=== PATIENT | male | born 1960 | race American Indian/Alaskan Native ===

== ENCOUNTER 2019-03-09 17:42 | Emergency (ER) | payer SELFPAY ==
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
--- NOTE | 2019-03-09 19:54 | Cat Scan Report ---
CT head/brain wo con INDICATION / CLINICAL INFORMATION: headache/neck pain. TECHNIQUE: Axial CT imaging of abdomen and pelvis was obtained without contrast. Coronal and sagittal reformatte d imaging obtained and reviewed. All CT scans at this location are performed using CT dose reduction for ALARA by means of automated exposure control. COMPARISON: None available. FINDINGS: No intracranial hemorrhage, mass, or midline shift is identified. No extra-axial fluid collection or suggestion of acute territorial infarct. Ventricular system and basilar cisterns are grossly unremark able. There is mild to moderate cerebral and cerebellar atrophy. Mild microvascular angiopathic neely es are noted. The visualized paranasal sinuses are well aerated and clear. Mastoid air cells are clear. I do not se e any evidence for calvarial fracture or significant soft tissue abnormality. IMPRESSION: 1. No acute intracranial abnormality. Signer Name: Ana Laura Haywood MD Signed: 03/09/2019 7:50 PM Workstation Name: [id number]
--- NOTE | 2019-03-09 20:04 | Cat Scan Report ---
CT CERVICAL SPINE WITHOUT CONTRAST INDICATION: headache/neck pain. TECHNIQUE: All CT scans at this location are performed using CT dose reduction for ALARA by means of automated e xposure control. Axial CT images were obtained through the cervical spine. Sagittal and coronal reformatted images we re produced. COMPARISON: None available. FINDINGS: Fracture: None. Subluxation: None. Spinal canal: No significant compromise. Disc spaces: Mild discogenic degenerative disease C4-6. Facet joints: Normal. Paraspinal soft tissues: No soft tissue swelling. Normal. Additional findings: None. Lung apices: Normal. IMPRESSION: 1. No acute findings. Signer Name: Kevin Rose MD Signed: 03/09/2019 8:00 PM Workstation Name: [id number]
--- NOTE | 2019-03-09 20:06 | XRay Report ---
. LEFT HAND 2 VIEWS INDICATION / CLINICAL INFORMATION: pain lt hand. COMPARISON: None available. FINDINGS: No fracture, dislocation or soft tissue swelling is seen within the left hand. Mild degenerative oste oarthrosis is seen within the PIP and DIP joints. Signer Name: Kevin Rose MD Signed: 03/09/2019 8:02 PM Workstation Name: [id number]
--- NOTE | 2019-03-09 20:06 | XRay Report ---
. LUMBAR SPINE 3 VIEWS INDICATION / CLINICAL INFORMATION: pain lumbar. COMPARISON: None available. FINDINGS: VERTEBRAE: No fracture. No significant malalignment. DISC SPACES:Moderately advanced discogenic degenerative disease L3-4 and L5-S1. Moderate discogenic d egenerative disease L4-5. FACET JOINTS:Moderate facet degenerative disease L4-S1 ADDITIONAL FINDINGS: Moderate degenerative arthrosis of both hips IMPRESSION: 1. Moderately advanced discogenic and facet degenerative disease lumbar spine Signer Name: Kevin Rose MD Signed: 03/09/2019 8:01 PM Workstation Name: [id number]
[2019-03-09] MEDS ORDERED: ACETAMINOPHEN 500 MG TAB PO ONE (22:28)
[2019-03-09] MEDS ORDERED: CYCLOBENZAPRINE 10 MG TAB PO ONE (22:28)
[2019-03-09] MEDS ORDERED: FUROSEMIDE 20 MG TAB PO ONE (22:29)
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
[2019-03-10 08:47] VITALS: BP 146/109
[2019-03-10] MEDS ORDERED: INSULIN REGULAR, HUMAN 100 UNITS/1 ML ONE (11:40)
[2019-03-10] MEDS ORDERED: INSULIN REGULAR, HUMAN 100 UNITS/1 ML SUB-Q ONE (11:53)
[2019-03-10] MEDS ORDERED: INSULIN NPH/REGULAR 70/30 INJ SUB-Q ONE (12:00)
== END 2019-03-10 12:07 | disposition home or self-care (01) ==
LOC: ED 17:42
DX: S66.919A Strain of unspecified muscle, fascia and tendon at wrist and hand level, unspecified hand, initial encounter (principal); M25.511 Pain in right shoulder; M25.512 Pain in left shoulder; I11.0 Hypertensive heart disease with heart failure; I50.9 Heart failure, unspecified; E11.9 Type 2 diabetes mellitus without complications; F17.200 Nicotine dependence, unspecified, uncomplicated; X58.XXXA Exposure to other specified factors, initial encounter; Y93.89 Activity, other specified; Y92.89 Other specified places as the place of occurrence of the external cause; Y99.8 Other external cause status
CPT/HCPCS: 70450; 72100; 72125; 82962; 96372; 99284; J1815

== ENCOUNTER 2019-03-11 22:14 | Emergency (ER) | payer SELFPAY ==
[2019-03-12 02:59] LABS: Basophils # (Auto) 0.1 K/mm3 (0.0-0.1); Basophils % (Auto) 1.1 % (0.0-1.8); Eosinophils # (Auto) 0.1 K/mm3 (0.0-0.4); Eosinophils % (Auto) 1.6 % (0.0-4.3); Hematocrit 36.4 % (35.5-45.6); Lymphocytes # (Auto) 0.9 K/mm3 (1.2-5.4); Lymphocytes % (Auto) 13.8 % (13.4-35.0); Mean Corpuscular HGB Conc 33 % (32-34); Mean Corpuscular Volume 77 fl (84-94); Monocytes # (Auto) 0.5 K/mm3 (0.0-0.8); Monocytes % (Auto) 7.7 % (0.0-7.3); Platelet Count 210 K/mm3 (140-440); Red Blood Count 4.76 M/mm3 (3.65-5.03)
[2019-03-12 03:02] LABS: Red Cell Distribution Width 20.2 % (13.2-15.2)
[2019-03-12 03:09] LABS: BUN/Creatinine Ratio 11; Blood Urea Nitrogen 14 mg/dL (9-20); Calcium 8.5 mg/dL (8.4-10.2); Hemolysis Index 5
[2019-03-12] MEDS ORDERED: SODIUM CHLORIDE 0.9% 1000 ML 1,000 ML IV ONE ×2 (03:10→03:11)
[2019-03-12] MEDS ORDERED: INSULIN REGULAR, HUMAN 100 UNITS/1 ML IV ONE (03:11)
[2019-03-12] MEDS ORDERED: FUROSEMIDE 40 MG/4 ML INJ IV ONE (05:19)
[2019-03-12] MEDS ORDERED: ACETAMINOPHEN 500 MG TAB PO ONE (05:49)
[2019-03-12] MEDS ORDERED: CYCLOBENZAPRINE 10 MG TAB PO ONE (06:19)
[2019-03-12 06:20] VITALS: BP 139/87
--- NOTE | 2019-03-12 06:42 | Emergency Department Report ---
ED General Adult HPI - General Chief complaint: Hyperglycemia Stated complaint: ELEVATED BGL Source: patient, EMS Mode of arrival: Ambulatory Limitations: No Limitations - History of Present Illness Initial comments: Patient is a 59-year-old -[place]er male with a history of hypertension, ozt-fmlsuwb-myaqdgdxa diabetes, chronic lymphedema and CHF who presents to the ED with complaint of acute onset persistent bilateral lower extremity pain, diffuse body aches and pains and generalized fatigue and weakness for the last 12 hours. Patient states that he has not been able to take any of his medications for diabetes and CHF because he does not have money and whatever pr escriptions given to him the he is not able to feel at the pharmacy because he is homeless. Patient states that he suspect that this blood sugar is high and that is why his symptoms are worsen. Patient denies shortness of breath, chest pain, fever, chills, dizziness, syncope, palpitations, numbness and tingling or weakness of upper and lower extremities bilaterally, change in vision, fever, chills, cough or loss of consciousness and dysuria. MD Complaint: Weakness, leg pains -: Sudden, hour(s) (12) Location: lower extremity (bilateral legs) Radiation: non-radiation Severity scale (0 -10): 10 Quality: aching, sharp Consistency: constant Improves with: none Worsens with: movement Associated Symptoms: denies other symptoms, weakness. denies: confusion, chest pain, cough, diaphoresis, fever/chills, headaches, malaise, nausea/vomiting, shortness of breath, syncope - Related Data Previous Rx's Medication Instructions Recorded Last Taken Type Cyclobenzaprine [Flexeril] 10 mg PO Q8H PRN #12 tablet 03/12/19 Unknown Rx Furosemide [Lasix TAB] 40 mg PO QDAY #10 tablet 03/12/19 Unknown Rx Allergies Allergy/AdvReac Type Severity Reaction Status Date / Time No Known Allergies Allergy Verified 03/11/19 22:50 ED Review of Systems ROS: Stated complaint: ELEVATED BGL Other details as noted in HPI Constitutional: malaise, weakness. denies: chills, fever Eyes: denies: eye pain, eye discharge, vision change ENT: denies: ear pain, throat pain Respiratory: denies: cough, shortness of breath, wheezing Cardiovascular: denies: chest pain, palpitations Endocrine: no symptoms reported Gastrointestinal: denies: abdominal pain, nausea, diarrhea Genitourinary: denies: urgency, dysuria Musculoskeletal: back pain, arthralgia (diffuse lower diffuse lower extremity pain), myalgia. denies: joint swelling Skin: denies: rash, lesions Neurological: denies: headache, weakness, paresthesias Psychiatric: denies: anxiety, depression Hematological/Lymphatic: denies: easy bleeding, easy bruising ED Past Medical Hx - Past Medical History Hx Hypertension: Yes Hx Congestive Heart Failure: Yes Hx Diabetes: Yes Additional medical history: Glaucoma - Social History Smoking Status: Current Every Day Smoker Substance Use Type: None - Medications Home Medications: Home Medications Medication Instructions Recorded Confirmed Last Taken Type Cyclobenzaprine [Flexeril] 10 mg PO Q8H PRN #12 tablet 03/12/19 Unknown Rx Furosemide [Lasix TAB] 40 mg PO QDAY #10 tablet 03/12/19 Unknown Rx ED Physical Exam - General Limitations: No Limitations General appearance: alert, in no apparent distress - Head Head exam: Present: atraumatic, normocephalic, normal inspection - Eye Eye exam: Present: normal appearance, PERRL, EOMI. Absent: scleral icterus, conjunctival injection, nystagmus Pupils: Present: normal accommodation - ENT ENT exam: Present: normal exam, normal orophraynx, mucous membranes moist, TM's normal bilaterally, normal external ear exam - Neck Neck exam: Present: normal inspection, full ROM - Respiratory Respiratory exam: Present: normal lung sounds bilaterally. Absent: respiratory distress, wheezes, rales, rhonchi, chest wall tenderness, accessory muscle use, decreased breath sounds, prolonged expiratory - Cardiovascular Cardiovascular Exam: Present: regular rate, normal rhythm, normal heart sounds. Absent: systolic murmur, diastolic murmur, rubs, gallop - GI/Abdominal GI/Abdominal exam: Present: soft, normal bowel sounds. Absent: distended, tenderness, hyperactive bowel sounds, hypoactive bowel sounds, organomegaly - Rectal Rectal exam: Present: deferred - Extremities Exam Extremities exam: Present: normal inspection, tenderness (bilateral lower extremity tenderness diffusely due to chronic lymphedema), normal capillary refill, pedal edema (chronic lymphedema extending from the feet to the knees bilaterally). Absent: calf tenderness - Back Exam Back exam: Present: normal inspection, full ROM, muscle spasm, paraspinal tenderness - Neurological Exam Neurological exam: Present: alert, oriented X3, CN II-XII intact, normal gait, reflexes normal - Psychiatric Psychiatric exam: Present: normal affect, normal mood, anxious - Skin Skin exam: Present: warm, dry, intact, normal color. Absent: rash ED Course Vital Signs 03/11/19 03/12/19 23:16 06:20 Temperature 97.7 F Pulse Rate 96 H 98 H Respiratory 20 18 Rate Blood Pressure 140/94 Blood Pressure 139/87 [Right] O2 Sat by Pulse 99 100 Oximetry - Reevaluation(s) Reevaluation #1: 03/12/19 06:47 This is a 59-year-old male with a history of hypertension, chronic pain, chronic lymphedema and the-nolqmvd-jvyduazno diabetes as well as CHF who presents to the ED with generalized weakness and diffuse body aches and pains as well as lower extremity pain for [address]. In the ED, patient is alert and oriented 3 and is not in distress. Patient was treated for pain in the ED and lab test results were reviewed and showed hyperglycemia of 450 mg/dL. Patient was treated for hyperglycemia with insulin in the ED. Patient was noted given much fluid because of his history of chronic lymphedema and CHF, therefore to prevent exacerbation of his CHF which he does not Lasix for patient was treated for hyperglycemia. On reevaluation, patient's pain is well controlled with medications, patient sleeping comfortably in the bed in no acute distress. Final glucose elowu-xh-qezo test showed blood sugar of 177 mg/dL after treatment. Patient was discharged home on medications, Flexeril and Lasix prescriptions and advised to follow-up with [facility] for further evaluation in 2 days. At discharge, patient vital signs are stable, patient's pain is well-controlled with medications. Patient was have advised to return to the ED immediately if symptoms get worse. 03/12/19 06:48 03/12/19 06:51 ED Medical Decision Making - Lab Data Result diagrams: 03/12/19 02:22 03/12/19 02:22 - Medical Decision Making This is a 59-year-old male with a history of hypertension, chronic pain, chronic lymphedema and bls-mvkdjby-mjvispbaz diabetes as well as CHF who presents to the ED with generalized weakness and diffuse body aches and pains as well as lower extremity pain for 12 hours after walking [address]. In the ED, patient is alert and oriented 3 and is not in distress. Patient was treated for pain in the ED and lab test results were reviewed and showed hyperglycemia of 450 mg/dL. Patient was treated for hyperglycemia with insulin in the ED. Patient was noted given much fluid because of his history of chronic lymphedema and CHF. On reevaluation, patient's pain is well controlled with medications, patient sleeping comfortably in the bed in no acute distress. Final glucose hplrt-rj-wlvs test showed blood sugar of 177 mg/dL after treatment. Patient was discharged home on medications, Flexeril and Lasix prescriptions and advised to follow-up with [facility] for further evaluation in 2 days. At discharge, patient vital signs are stable, patient's pain is well-controlled with medications. Patient was have advised to return to the ED immediately if symptoms get worse. 03/12/19 06:48 - Differential Diagnosis hyperglycemia; chronic pain syndrome; chronic lymphedema Critical care attestation.: If time is entered above; I have spent that time in minutes in the direct care of this critically ill patient, excluding procedure time. ED Disposition Clinical Impression: Chronic pain syndrome Hyperglycemia due to type 2 diabetes mellitus Qualifiers: Diabetes mellitus snf insulin use: unspecified terminal superintendent insulin use status Qualified Code(s): E11.65 - Type 2 diabetes mellitus with hyperglycemia Disposition: DC-01 TO HOME OR SELFCARE Is pt being admited?: No Does the pt Need Aspirin: No Condition: Stable Instructions: Diabetes Mellitus Type 2 in Adults (ED), Chronic Pain (ED) Additional Instructions: Taking regular medications for pain and also water pill. Follow-up with your primary care physician at [facility] in 2 days for reevaluation. Return to the ED immediately if symptoms get worse Prescriptions: Cyclobenzaprine [Flexeril] 10 mg PO Q8H PRN #12 tablet PRN Reason: Muscle Spasm Furosemide [Lasix TAB] 40 mg PO QDAY #10 tablet Referrals: PRIMARY CARE, [Primary Care Provider] - 3-5 Days Time of Disposition: 06:41 Print Language: NEPALI
== END 2019-03-12 07:41 | disposition home or self-care (01) ==
LOC: ED 22:14
DX: E11.65 Type 2 diabetes mellitus with hyperglycemia (principal)
CPT/HCPCS: 36415; 80048; 82805; 82962; 85025; 96374; 99284; J1940; J1815